=== PATIENT | female | born 1930 | race Caucasian/White ===

== ENCOUNTER 2016-11-01 16:27 | Emergency (ER) | payer MEDICARE ==
[~2016-11-01 16:27] MED LIST: AMLODIPINE BESYL5 MG PO; ASPIRIN81 M2 PO; CELECOXIB200 M1; CELEXA10 MG PO; CENTRUM SILVER PO; COLACE PO; COREG3.125 MG PO; COZAAR100 MG PO; GABAPENTIN300 M2 PO; HYDROCHLOROTH12.5 MG PO; LEVOTHYROXINE50 MCG PO; LEVOTHYROXINE75 MC1 PO; LISINOPRIL10 MG PO; LOPRESSOR PO; LORTAB 10-5001 EACH PO; MULTI VITAMIN1 EACH PO; MULTIVITAMINS1 EAC3; SIMVASTATIN20 MG PO; SYNTHROID PO; SYNTHROID0.05 MG PO; VIBRAMYCIN100 M1 PO; VITAMIN D1000 UNI2 PO; VITAMIN D1000 UNIT PO; ZOCOR20 MG PO; ZYLOPRIM100 MG PO
== END 2016-11-01 17:16 | disposition home or self-care (01) ==
LOC: SED 16:27
DX: S81.811A Laceration without foreign body, right lower leg, initial encounter (principal); Z23 Encounter for immunization; Z88.2 Allergy status to sulfonamides; Z88.8 Allergy status to other drugs, medicaments and biological substances; W26.9XXA Contact with unspecified sharp object(s), initial encounter; Y92.009 Unspecified place in unspecified non-institutional (private) residence as the place of occurrence of the external cause
CPT/HCPCS: 90471; 90715; 99283

== ENCOUNTER 2017-04-09 20:16 | Emergency (ER) | payer MEDICARE ==
[~2017-04-09] VITALS: Ht 152.4 cm; Wt 65.8 kg
--- NOTE | ~2017-04-09 | US85 ---
[facility] RADIOLOGY TEXT RESULTS PATIENT: SRINATH MOORE LOCATION: SED : 32 UNIT #: [id number] AGE: [address]: Will Phillips DO SEX: F ORDER DR: [id number] [place] [id number] E MR#: [id number] Acc #: [id number] NAME: SRINATH MOORE : 1930 SEX: F STUDY DATE/TIME: 04/09/2017 22:17 UNIT: SED ROOM: STUDY DESCRIPTION: [place] [facility] Attending Physician: Will Phillips D.O.. Ordering Physician: Will Phillips D.O.. Primary Care Physician: Primary Care Physician No MEDICAL IMAGING REPORT This report is preliminary unless electronic signature is present. EXAM Venous Doppler ultrasound examination, right leg, 04/09/2017 HISTORY 86-year-old female in the ED complaining of 2-3 day history of right leg pain and swelling. TECHNIQUE Venous ultrasound examination of the right lower extremity was performed using grayscale, spectral Doppler and color flow Doppler imaging. FINDINGS The examination is negative. There is no evidence of right lower extremity deep venous thrombus from the groin to the lower calf. Visualized greater saphenous vein is also patent. IMPRESSION Negative examination. No evidence of right lower extremity deep venous thrombosis. Dictated by... Constantine Weller M.D. THIS IS AN ELECTRONICALLY VERIFIED REPORT Constantine Weller M.D. at 04/11/2017 6:02 AM LENI/yakov TD: 04/11/2017 00:00 JOB #: [id number] [facility] RADIOLOGY TEXT RESULTS PATIENT: SRINATH MOORE LOCATION: SED : 32 UNIT #: [id number] AGE: [address]: Alan, Benigno DO SEX: F ORDER DR: MEDICAL IMAGING REPORT Page 1 of 1
--- NOTE | ~2017-04-09 | EKG ---
PATIENT: SRINATH MOORE UNIT #: [id number] Ventricular Rate: 64 BPM Atrial Rate: 64 BPM P-R Interval: 164 ms QRS Duration: 84 ms Q-T Interval: 402 ms QTC Calculation(Bezet): 414 ms P [place]: 77 degrees Calculated R [place]: -15 degrees Calculated T [place]: 19 degrees Diagnosis Line: Sinus rhythm with Premature atrial complexes Diagnosis Line: Otherwise normal ECG Diagnosis Line: When compared with ECG of 14-MAY-2016 16:46, Diagnosis Line: Premature atrial complexes are now Present Diagnosis Line: Confirmed by NADIA CASTRO MD ([id number]) on Diagnosis Line: 04/13/2017 11:17:38 AM INTERPRETING MD: MATTHEW ROSA
--- NOTE | ~2017-04-09 | CR72 ---
[facility] A Service of [facility] RADIOLOGY TEXT RESULTS PATIENT: SRINATH MOORE LOCATION: SED : 32 UNIT #: [id number] AGE: [address]: Will Phillips DO SEX: F ORDER DR: [id number] [place] [id number] E MR#: [id number] Acc #: [id number] NAME: SRINATH MOORE : 1930 SEX: F STUDY DATE/TIME: 04/09/2017 22:41 UNIT: SED ROOM: STUDY DESCRIPTION: CR Chest Single View Portable Attending Physician: Will Phillips D.O.. Ordering Physician: Will Phillips D.O.. Primary Care Physician: Primary Care Physician No MEDICAL IMAGING REPORT This report is preliminary unless electronic signature is present. EXAM Chest x-ray, 04/09/2017 HISTORY 86-year-old female in the ED complaining of leg and foot redness and swelling today. TECHNIQUE AP portable chest x-ray. FINDINGS Mild cardiomegaly. Pulmonary vascularity is normal. The lungs are expanded and clear. No visible pulmonary infiltrate. No change since 03/19/2014. IMPRESSION No active disease. Mild cardiomegaly. Dictated by... Constantine Weller M.D. THIS IS AN ELECTRONICALLY VERIFIED REPORT Constantine Weller M.D. at 04/11/2017 6:02 AM LENI/yakov TD: 04/11/2017 00:04 JOB #: [id number] MEDICAL IMAGING REPORT [facility] A Service of [facility] RADIOLOGY TEXT RESULTS PATIENT: SRINATH MOORE LOCATION: SED : 32 UNIT #: [id number] AGE: [address]: Will Phillips DO SEX: F ORDER DR: Page 1 of 1
[2017-04-09 22:21] LABS: POC - CKMB 1.3 ng/mL (0.0-7.9); POC - TROPONIN <0.05 ng/mL (<=0.05)
[2017-04-09 22:35] LABS: BASOPHIL% 0.5 % (0-2.5); EOSINOPHIL# 0.1 X10e3 (0-0.7); EOSINOPHIL% 1.4 % (0.0-7.0); HEMATOCRIT 34.2 % (35.0-45.0); HEMOGLOBIN 11.7 gm/dL (12.0-16.0); LYMPHOCYTE# 2.5 X10e3 (1.0-3.5); LYMPHOCYTE% 29.5 % (17.0-45.0); MEAN CELL VOLUME 91.3 FL (83-96); MEAN CORPUSCULAR HEMOGLOBIN 31.4 PG (28-34); MEAN CORPUSCULAR HGB CONC 34.4 g/dL (30-36); MEAN PLATELET VOLUME 9.2 FL (6.5-11.5); MONOCYTE# 0.8 X10e3 (0-1.0); MONOCYTE% 9.8 % (3.0-12.0); NEUTROPHIL% 58.8 % (40-75); PLATELET COUNT 229 X10e3 (140-420); RED BLOOD COUNT 3.74 X10e (3.90-5.30); RED CELL DISTRIBUTION WIDTH 15.3 % (11.0-15.5); WHITE BLOOD COUNT 8.5 X10e3 (4.0-10.5)
[2017-04-09 22:36] LABS: DIFF IND NO
[2017-04-09 22:52] LABS: ALBUMIN SERUM 4.1 g/dL (3.5-5.0); BILIRUBIN, DIRECT 0.3 mg/dL (0.0-0.2); BILIRUBIN,INDIRECT 0.6 mg/dL (0.0-0.9); BILIRUBIN,TOTAL 0.9 mg/dL (0.2-2.0); BUN/CREATININE RATIO 24.16; CALCIUM SERUM 9.5 mg/dL (8.4-10.2); CREATININE SERUM 1.2 mg/dL (0.6-1.4); GLOM FILT RATE Estimated 41.5 mL/min (>60); PROTEIN TOTAL SERUM 5.7 g/dL (6.0-8.3)
[2017-04-09 22:55] LABS: POTASSIUM 4.2 mmol/L (3.5-5.1)
[2017-04-09 23:24] LABS: PROTHROMBIN TIME (PATIENT) 11.3 SECONDS (9.5-12.4)
[2017-04-09 23:31] LABS: PARTIAL THROMBOPLASTIN TIME 27.7 SECONDS (25.6-38.1)
== END 2017-04-09 23:52 | disposition home or self-care (01) ==
LOC: SED 20:16
PROVIDERS: Emergency Medicine
DX: M79.89 Other specified soft tissue disorders (principal); E87.1 Hypo-osmolality and hyponatremia; I10 Essential (primary) hypertension; Z88.2 Allergy status to sulfonamides; Z88.5 Allergy status to narcotic agent
CPT/HCPCS: 36415; 71010; 80048; 80076; 82553; 83874; 83880; 84484; 85025; 85610; 85730; 93005; 93971; 96374; 99284; J1940